=== PATIENT | female | born 1975 | race Hispanic/Latino ===

== ENCOUNTER → 2024-02-24 | Day surgery (SDC) | payer OTHER ==
[~2024-02-24] MED LIST: ASPIRIN81 MG PO; CIPRO500 MG PO; LIDOCAINE HCL 2% LOCAL 20 ML VIAL ONE; METHIMAZOLE5 MG PO; METRONIDAZOLE500 MG PO; PREMPRO 0.625-1 EAC1 PO; PROPOFOL IV EMULSION 10 MG/ML 20 ML VIAL ONE
[2024-02-24] MEDS: LACTATED RINGER'S 1,000 ML ONE (09:02)
[2024-02-24 11:26] VITALS: BP 132/76; PULSE 82; RESP 16; O2SAT 98
== END | disposition home or self-care (01) ==
LOC: OR 08:34
PROVIDERS: ATTEND Internal Medicine Gastroenterology
DX: R10.9 Unspecified abdominal pain (principal); K57.30 Diverticulosis of large intestine without perforation or abscess without bleeding; K64.8 Other hemorrhoids; K21.9 Gastro-esophageal reflux disease without esophagitis; J45.909 Unspecified asthma, uncomplicated; E03.9 Hypothyroidism, unspecified; Z79.82 Long term (current) use of aspirin; Z79.899 Other long term (current) drug therapy
CPT/HCPCS: 45378; 81025; J2003; J2704; J7121

== ENCOUNTER → 2024-03-27 | Outpatient (REF) | payer OTHER ==
[~2024-03-27] MED LIST changes: -LIDOCAINE HCL 2% LOCAL 20 ML VIAL ONE; -PROPOFOL IV EMULSION 10 MG/ML 20 ML VIAL ONE
== END ==
LOC: US 07:50
PROVIDERS: ATTEND Nurse Practitioner
DX: R10.11 Right upper quadrant pain (principal)
CPT/HCPCS: 76700